=== PATIENT | male | born 1985 | race African-American/Black ===

== ENCOUNTER 2016-04-18 19:27 | Emergency (ER) | payer OTHER ==
[~2016-04-18] VITALS: Ht 182.9 cm; Wt 131.5 kg
[~2016-04-18 19:27] MED LIST: TRAZ50TA OR; ZOLO50TA OR
[2016-04-18] MEDS ORDERED: NAPR500T PO (22:19)
[2016-04-18 22:25] VITALS: BP 165/84
--- NOTE | 2016-04-19 10:47 | REP ---
Pain after trauma. PRIORS: None. There is mild tricompartmental marginal osteophytosis. There is no acute fracture or dislocation. IMPRESSION: Chronic changes as described above. Signed by Kishore Johnson DO 04/19/2016 11:25 A
== END 2016-04-18 22:29 | disposition home or self-care (01) ==
LOC: M ED 20:35
DX: S83.91XA Sprain of unspecified site of right knee, initial encounter (principal); X50.0XXA Overexertion from strenuous movement or load, initial encounter; Y92.018 Other place in single-family (private) house as the place of occurrence of the external cause; Y93.89 Activity, other specified; Y99.8 Other external cause status; M17.0 Bilateral primary osteoarthritis of knee

== ENCOUNTER 2016-09-09 13:07 | Emergency (ER) | payer OTHER ==
[~2016-09-09] VITALS: Ht 182.9 cm; Wt 122.7 kg
[~2016-09-09 13:07] MED LIST changes: +NAPR500T PO
[2016-09-09] MEDS ORDERED: KETOROLAC 60 MG/2 ML VIAL (J1885) IM ONE (14:00)
[2016-09-09] MEDS ORDERED: diazePAM 5 MG TAB PO ONE (14:00)
--- NOTE | 2016-09-09 14:41 | REP ---
LUMBOSACRAL SPINE COMPLETE: 09/09/2016. Clinical history: Low back pain. Findings: No prior study. Pedicle, spinous transverse processes intact. Sacral ala, foramina and SI joints as well as visualized portions of iliac wings intact. Some degenerative changes with mild sclerosis on the acetabular roof of both hips. Oblique views show no sign of spondylolysis. There is no spondylolisthesis and minimal disc space narrowing at L4-5 with a other disc space heights and all vertebral body heights intact. Normal lordosis. Impression: 1. Mild degenerative disc change with slight narrowing and no five S1 without spondylolysis, spondylolisthesis, compression deformity or other acute finding. Signed by Xavier Lazcano MD 09/09/2016 02:32 P
[2016-09-09] MEDS ORDERED: HYDR-3713 PO (14:44)
[2016-09-09] MEDS ORDERED: CYCL10TA PO (14:44)
[2016-09-09 14:49] VITALS: BP 140/96
== END 2016-09-09 14:55 | disposition home or self-care (01) ==
LOC: M ED 13:07
DX: M51.37 Other intervertebral disc degeneration, lumbosacral region (principal); G89.29 Other chronic pain; M54.5 Low back pain; E66.9 Obesity, unspecified; F17.200 Nicotine dependence, unspecified, uncomplicated; Z79.899 Other long term (current) drug therapy
CPT/HCPCS: 72110; 96372; 99282; J1885

== ENCOUNTER 2016-09-24 10:31 | Emergency (ER) | payer OTHER ==
[~2016-09-24] VITALS: Ht 180.3 cm; Wt 122.7 kg
[~2016-09-24 10:31] MED LIST changes: +CYCL10TA PO; +HYDR-3713 PO
[2016-09-24] MEDS ORDERED: ONDANSETRON 4MG/2ML VIAL (J2405) IV ONE (11:00)
[2016-09-24] MEDS ORDERED: KETOROLAC 30 MG/ML VIAL (J1885) IV ONE (11:00)
[2016-09-24] MEDS ORDERED: GASTROGRAFIN SOLUTION 30ML (Q9963) PO ONE ×2 (11:30→12:00)
[2016-09-24 11:43] LABS: BASO % 0.6 % (0.0-1.0); EOS # 0.2 K/mm3 (0.0-0.50); EOS % 1.8 % (0.0-3.0); LARGE UNSTAINED CELL # 0.1 K/mm3 (0.0-0.4); LARGE UNSTAINED CELL % 0.9 % (0.0-4.0); LYMPH # 1.7 K/mm3 (1.5-4.5); LYMPH % 20.7 % (24.0-44.0); MEAN CORPUSCULAR HEMOGLOBIN 29.4 pg (27.0-33.0); MEAN CORPUSCULAR HGB CONC 33.3 g/dl (32.0-36.5); MEAN CORPUSCULAR VOLUME 88.4 fl (80.0-96.0); MONO # 0.2 K/mm3 (0.0-0.8); MONO % 2.7 % (0.0-5.0); NEUTROPHILS # 6.1 K/mm3 (1.8-7.7); NEUTROPHILS % 73.2 % (36.0-66.0); PLATELET COUNT, AUTOMATED 355 k/mm3 (150-450); RED CELL DISTRIBUTION WIDTH 13.2 % (11.5-14.5); WHITE BLOOD COUNT 8.3 K/mm3 (4.0-10.0)
[2016-09-24 12:14] LABS: ALBUMIN 4.2 GM/DL (3.2-5.2); ALBUMIN/GLOBULIN RATIO 1.08 (1.00-1.93); ALKALINE PHOSPHATASE 65 U/L (45-117); ALT/SGPT 33 U/L (12-78); AMYLASE 59 U/L (25-115); ANION GAP 8 MEQ/L (8-16); AST/SGOT 22 U/L (15-37); BILIRUBIN,DIRECT < 0.1 MG/DL (0.0-0.2); BILIRUBIN,TOTAL 0.5 MG/DL (0.2-1.0); BLOOD UREA NITROGEN 7 MG/DL (7-18); CALCIUM LEVEL 9.2 MG/DL (8.5-10.1); CARBON DIOXIDE LEVEL 28 MEQ/L (21-32); CHLORIDE LEVEL 105 MEQ/L (98-107); CREATININE FOR GFR 0.87 MG/DL (0.70-1.30); GLOMERULAR FILTRATION RATE > 60.0 (>60); GLUCOSE, FASTING 111 MG/DL (70-105); SODIUM LEVEL 141 MEQ/L (136-145); TOTAL PROTEIN 8.1 GM/DL (6.4-8.2)
[2016-09-24] MEDS ORDERED: MORPHINE 4 MG/ML 1ML SYRINGE IV ONE (12:15)
[2016-09-24] MEDS ORDERED: METOCLOPRAMIDE INJ 10MG/2ML VIAL (J2765) IV ONE (12:15)
[2016-09-24] MEDS ORDERED: ISOVUE-370 76% 100ML VIAL (Q9967) As Ordered ONE (12:30)
--- NOTE | 2016-09-24 13:21 | REP ---
ABDOMINAL SERIES: Supine and erect views of the abdomen and pelvis demonstrate no free air and no evidence for obstruction. No dilated small bowel loops are seen. There are phleboliths in the right pelvis. The visualized osseous structures appear unremarkable. An accompanying view of the chest demonstrates no acute infiltrate. Heart is normal in size and the mediastinal silhouette is unremarkable. IMPRESSION: Negative abdominal series. Signed by Steve Pink MD 09/24/2016 05:02 P
--- NOTE | 2016-09-24 13:22 | REP ---
CT of the abdomen and pelvis with IV and bowel contrast: Comparisons are 01/13/2011 and 06/12/2013. The visualized lung koch are unremarkable. The hepatic parenchyma, gallbladder, pancreas, spleen, adrenals and kidneys are unremarkable. There is no hydronephrosis. The abdominal aorta is unremarkable. There is diffuse wall thickening of the entire colon and distal small bowel loops compatible with enterocolitis in the appropriate clinical setting. There is no adenopathy or ascites. There is no bowel distension or obstruction. Pelvis: The bladder is unremarkable. There is no adenopathy or ascites. The pelvic bowel loops reveal wall thickening of the rectosigmoid colon. Impression: Wall thickening of the entire colon and of the distal small bowel loops compatible with enterocolitis in the appropriate clinical setting. No ascites or adenopathy. No bowel distension or obstruction. Signed by Steve Gill MD 09/24/2016 12:48 P
[2016-09-24] MEDS ORDERED: TRIMETHOBENZAMIDE HCL INJ 200 MG/2 ML VIAL (J3250) IM ONE (14:00)
[2016-09-24] MEDS ORDERED: HYDROmorphone HCL 1 MG/ML SYRINGE (J1170) IV ONE (14:00)
[2016-09-24] MEDS ORDERED: NS 1,000 ML IV ONE (14:15)
[2016-09-24 14:36] VITALS: BP 117/60
[2016-09-24] MEDS ORDERED: FLAG500T PO (14:42)
[2016-09-24] MEDS ORDERED: CIPR-249 PO (14:42)
[2016-09-24] MEDS ORDERED: ZOFR4TAB3 PO (14:42)
== END 2016-09-24 15:09 | disposition home or self-care (01) ==
LOC: M ED 10:31
DX: K52.9 Noninfective gastroenteritis and colitis, unspecified (principal); R10.84 Generalized abdominal pain; R11.2 Nausea with vomiting, unspecified; M54.9 Dorsalgia, unspecified; F17.210 Nicotine dependence, cigarettes, uncomplicated
CPT/HCPCS: 74022; 74177; 80048; 80076; 81001; 82150; 83605; 83690; 85025; 96372; 96374; 96375; 99284; J1170; J1885; J2405; J2765; J3250; Q9963; Q9967

== ENCOUNTER 2017-08-12 18:29 | Emergency (ER) | payer OTHER ==
[2017-08-12 19:29] LABS: KETONE, URINE AUTO RFX NEGATIVE (NEGATIVE); LEUKOCYTE ESTERASE UR AUTO RFX NEGATIVE (NEGATIVE); MUCUS, URINE RFX SMALL (NEGATIVE); NITRITE, URINE AUTO RFX NEGATIVE (NEGATIVE); RBC, URINE AUTO RFX 2 /HPF (0-3); SPECIFIC GRAVITY UR AUTO RFX 1.019 (1.002-1.035); SQUAM EPITHELIAL CELL UR AURFX 0 /HPF (0-6); WBC, URINE AUTO RFX 4 /HPF (0-3)
[2017-08-12] MEDS: BACTRIM 160MG/800MG DS TAB PO (21:45)
[2017-08-12] MEDS: PHENAZOPYRIDINE 100 MG TAB PO (21:45)
[2017-08-12 23:26] LABS: CHLAMYDIA DNA AMPLIFICATION NEGATIVE (NEGATIVE); GC DNA AMPLIFICATION NEGATIVE (NEGATIVE)
== END 2017-08-12 21:48 | disposition home or self-care (01) ==
LOC: M ED 18:29
DX: N39.0 Urinary tract infection, site not specified (principal); L02.01 Cutaneous abscess of face; M92.50 Unspecified juvenile osteochondrosis of tibia and fibula; Z87.2 Personal history of diseases of the skin and subcutaneous tissue
CPT/HCPCS: 36415

== ENCOUNTER 2017-10-08 10:45 | Emergency (ER) | payer OTHER ==
[2017-10-08] MEDS: KETOROLAC 60 MG/2 ML VIAL (J1885) IM (11:52)
== END 2017-10-08 11:57 | disposition home or self-care (01) ==
LOC: M ED 10:45
DX: M17.12 Unilateral primary osteoarthritis, left knee (principal); Z87.39 Personal history of other diseases of the musculoskeletal system and connective tissue; Z72.0 Tobacco use
CPT/HCPCS: J1885

== ENCOUNTER 2017-10-10 07:19 | Emergency (ER) | payer OTHER ==
[2017-10-10 09:11] LABS: BASO # 0.1 10^3/uL (0.0-0.2); BASO % 0.6 % (0.0-1.0); EOS # 0.4 10^3/uL (0.0-0.50); HEMATOCRIT 42.9 % (42.0-52.0); IMMATURE GRANULOCYTE % 0.6 % (0-3.0); LYMPH # 3.1 10^3/uL (1.5-4.5); LYMPH % 31.8 % (24.0-44.0); MEAN CORPUSCULAR HEMOGLOBIN 28.6 pg (27.0-33.0); MEAN CORPUSCULAR HGB CONC 32.6 g/dl (32.0-36.5); MEAN CORPUSCULAR VOLUME 87.7 fl (80.0-96.0); MONO # 0.6 10^3/uL (0.0-0.8); NEUTROPHILS # 5.6 10^3/uL (1.8-7.7); PLATELET COUNT, AUTOMATED 306 10^3/uL (150-450); RED BLOOD COUNT 4.89 10^6/uL (4.30-6.10); RED CELL DISTRIBUTION WIDTH 13.8 % (11.5-14.5); WHITE BLOOD COUNT 9.7 10^3/uL (4.0-10.0)
[2017-10-10 09:24] LABS: D-DIMER QUANT 324.8 ng/ml (<500)
[2017-10-10 09:28] LABS: ANION GAP 6 MEQ/L (8-16); BLOOD UREA NITROGEN 5 MG/DL (7-18); CALCIUM LEVEL 8.6 MG/DL (8.5-10.1); CARBON DIOXIDE LEVEL 30 MEQ/L (21-32); CHLORIDE LEVEL 104 MEQ/L (98-107); CPK CREATINE PHOSPHOKINASE 255 U/L (39-308); CREATININE FOR GFR 0.73 MG/DL (0.70-1.30); GLOMERULAR FILTRATION RATE > 60.0 (>60); GLUCOSE, FASTING 90 MG/DL (70-100); POTASSIUM SERUM 4.2 MEQ/L (3.5-5.1); SODIUM LEVEL 140 MEQ/L (136-145); TROPONIN I < 0.02 NG/ML (< 0.10)
[2017-10-10 09:29] LABS: CK-MB VALUE MASS < 1.0 NG/ML (<3.6); MB/CK RELATIVE INDEX 0.39 (< OR =4)
== END 2017-10-10 10:10 | disposition home or self-care (01) ==
LOC: M ED 07:19
DX: R07.9 Chest pain, unspecified (principal); Z87.891 Personal history of nicotine dependence
CPT/HCPCS: 71046

== ENCOUNTER 2018-09-09 17:49 | Emergency (ER) | payer OTHER ==
[~2018-09-09] VITALS: Ht 180.3 cm; Wt 118.2 kg
[2018-09-09 17:49] VITALS: BP 160/83
[~2018-09-09 17:49] MED LIST changes: +BACT800T5 PO; +CIPR-249 PO; +FLAG500T PO; +IBUP-1022 PO; +KETO10TAB PO; +NAPR-837 PO; -NAPR500T PO; +PYRI1TAB5 PO; +ZOFR4TAB14 PO
[2018-09-09] MEDS ORDERED: MUPI2OI TOP (18:26)
[2018-09-09] MEDS ORDERED: KEFL500C17 PO (18:26)
[2018-09-09] MEDS ORDERED: CEPHALEXIN 500 MG CAP PO ONE (18:30)
[2018-09-09] MEDS ORDERED: MUPIROCIN 2% OINT 22 GM TUBE TOP ONE (18:30)
== END 2018-09-09 18:41 | disposition home or self-care (01) ==
LOC: M ED 17:49
DX: L03.116 Cellulitis of left lower limb (principal)

== ENCOUNTER 2018-11-18 20:56 | Emergency (ER) | payer OTHER ==
[~2018-11-18] VITALS: Ht 180.3 cm; Wt 122.7 kg
[2018-11-18 20:56] VITALS: BP 151/79
[~2018-11-18 20:56] MED LIST changes: +KEFL500C17 PO; +MUPI2OI TOP
== END 2018-11-18 22:06 | disposition home or self-care (01) ==
LOC: M ED 20:56
DX: M79.9 Soft tissue disorder, unspecified (principal); F17.210 Nicotine dependence, cigarettes, uncomplicated

== ENCOUNTER 2019-10-28 18:32 | Emergency (ER) | payer OTHER ==
[~2019-10-28] VITALS: Ht 182.9 cm; Wt 134.7 kg
[~2019-10-28 18:32] MED LIST changes: +CYCL-707 PO; -CYCL10TA PO
[2019-10-28 18:33] VITALS: BP 172/102
[2019-10-28] MEDS ORDERED: GABA-843 (18:52)
[2019-10-28] MEDS ORDERED: NORCO, ANEXSIA 5/325MG TABLET (HYDROcodone/ACETAMINOPHEN) PO ONE (19:30)
[2019-10-28] MEDS ORDERED: NORC1TAB7 PO (19:33)
[2019-10-28] MEDS ORDERED: LIDO2SOL17 PO (19:35)
[2019-10-28] MEDS ORDERED: LIDOCAINE VISCOUS 2% SOLN 15ML UDC TOP ONE (19:45)
== END 2019-10-28 20:04 | disposition home or self-care (01) ==
LOC: M ED 18:32
DX: K02.9 Dental caries, unspecified (principal); K08.89 Other specified disorders of teeth and supporting structures; Z79.899 Other long term (current) drug therapy

== ENCOUNTER 2019-12-10 11:14 | Emergency (ER) | payer MEDICAID, OTHER ==
[~2019-12-10] VITALS: Ht 182.9 cm; Wt 127.4 kg
[~2019-12-10 11:14] MED LIST changes: +GABA-843; +LIDO2SOL17 PO; +NORC1TAB7 PO
[2019-12-10 11:15] VITALS: BP 169/95
[2019-12-10] MEDS ORDERED: IBUP-1022 (11:20)
[2019-12-10] MEDS ORDERED: AMOX500T (11:20)
[2019-12-10] MEDS ORDERED: KETO10TAB PO (12:14)
[2019-12-10] MEDS ORDERED: AUGM875T28 PO (12:14)
[2019-12-10] MEDS ORDERED: KETOROLAC TROMETHAMINE 10 MG TAB PO ONE (12:15)
== END 2019-12-10 12:24 | disposition home or self-care (01) ==
LOC: M ED 11:14
DX: K04.7 Periapical abscess without sinus (principal); F17.200 Nicotine dependence, unspecified, uncomplicated; Z79.899 Other long term (current) drug therapy

== ENCOUNTER 2021-02-07 12:21 | Emergency (ER) | payer BC, MEDICAID ==
[~2021-02-07] VITALS: Ht 182.9 cm; Wt 107.9 kg
[~2021-02-07 12:21] MED LIST changes: +AMOX500T; +AUGM875T28 PO; +GABA-282; -GABA-843; +IBUP-1022
[2021-02-07 12:22] VITALS: BP 179/95
[2021-02-07] MEDS ORDERED: LIDOCAINE VISCOUS 2% SOLN 15ML UDC SSP ONE (14:40)
[2021-02-07] MEDS ORDERED: AMOXICILLIN 500 MG CAP PO ONE (14:40)
[2021-02-07] MEDS ORDERED: AMOX875T PO (14:47)
== END 2021-02-07 15:28 | disposition home or self-care (01) ==
LOC: M ED 12:21
DX: K02.9 Dental caries, unspecified (principal); F17.200 Nicotine dependence, unspecified, uncomplicated

== ENCOUNTER → 2021-04-10 | Outpatient (CLI) | payer BC, MEDICAID ==
[~2021-04-10] MED LIST changes: +AMOX875T PO
== END ==
LOC: M SOG 15:49
PROVIDERS: ATTEND Orthopaedic Surgery Hand Surgery
DX: M25.562 Pain in left knee (principal)

== ENCOUNTER 2021-04-28 17:58 | Emergency (ER) | payer BC, MEDICAID, OTHER ==
[~2021-04-28] VITALS: Ht 182.9 cm; Wt 112.7 kg
[2021-04-28 17:58] VITALS: BP 155/74
== END 2021-04-28 19:20 | disposition home or self-care (01) ==
LOC: M ED 17:58
DX: M79.675 Pain in left toe(s) (principal)